=== PATIENT | male | born 1990 | race Caucasian/White ===

== ENCOUNTER 2019-09-02 09:18 | Emergency (ER) | payer OTHER, MEDICAID ==
[~2019-09-02] VITALS: Ht 172.7 cm; Wt 91.0 kg
--- NOTE | 2019-09-02 09:36 | NUR ---
charge auditor notified of legal, sitter in place. pt flushed, sweaty. wthdraws to pain. nonverbal. vss. SR/ST on monitor 90s. fall precs. maintaining airway. haldol per iv per ems, pt was speaking full sentences prior, denied hx of psych to ems, admitted to marijuana and meth and etoh. one belongings bag. awaiting md. as
[2019-09-02 10:21] LABS: BASOPHILS # (AUTO) 0.03 x10^3/uL (0-0.1); BASOPHILS % (AUTO) 0 % (0-1); EOSINOPHILS % (AUTO) 0 % (1-7); LYMPHOCYTES # (AUTO) 1.62 x10^3/uL (1-3.4); LYMPHOCYTES % (AUTO) 16 % (22-44); MD NO; MEAN CORPUSCULAR HEMOGLOBIN 30.4 pg (27.5-34.5); MEAN CORPUSCULAR HGB CONC 33.1 g/dL (33.2-36.2); MEAN CORPUSCULAR VOLUME 91.7 fL (81-97); MEAN PLATELET VOLUME 7.1 fL (7.4-10.4); MONOCYTES # (AUTO) 1.14 x10^3/uL (0.2-0.8); MONOCYTES % (AUTO) 12 % (2-9); NEUTROPHILS # (AUTO) 7.16 x10^3/uL (1.8-6.8); NEUTROPHILS % (AUTO) 72 % (42-75); PLATELET COUNT 263 x10^3/uL (130-400); RED BLOOD COUNT 5.41 x10^6/uL (4.38-5.82); RED CELL DISTRIBUTION WIDTH 14.1 % (9.4-14.8)
[2019-09-02 10:36] LABS: ALBUMIN 4.7 g/dL (3.4-5.0); ANION GAP 11 mmol/L (5-15); CALCIUM 9.3 mg/dL (8.5-10.1); CHLORIDE 100 mmol/L (98-107); CREATININE 1.91 mg/dL (0.7-1.3)
--- NOTE | 2019-09-02 10:40 | NUR ---
pt resting in bed, sitter in place. nonverbal, localizes to pain, vss, fall precs. labs pending. as
[2019-09-02 10:41] LABS: SALICYLATE LEVEL < 1.7 mg/dL (2.8-20.0)
[2019-09-02 11:09] VITALS: BP 123/83
--- NOTE | 2019-09-02 11:10 | NUR ---
resting in bed. pulls mask off face, beginning to move more, does not open eyes or speak. sitter in place. as
[2019-09-02] MEDS ORDERED: SODIUM CHLORIDE 0.9%, 500ML IVBOLUS ONE (12:00)
--- NOTE | 2019-09-02 12:41 | NUR ---
[facility] [place] [facility]) [phone]
--- NOTE | 2019-09-02 12:44 | NUR ---
UPDATED MOM ON PHONE, GIVEN PERMISSION BY PT. PER MOM PT ONLY SMOKES MARIJUANA AND HAS BEEN ACTING STRANGE X2 DAYS STS THERE ARE MICROPHONES IN HIS ROOM. UA WALKED TO LAB. PT A&OX4 GCS 15 ANSWERS QUESTIONS DENIES METH USE/SI/HI. PT NOTED TO BE WATCHING THINGS IN ROOM THAT AREN'T THERE.
[2019-09-02 12:58] LABS: AMPHETAMINE SCREEN, URINE Positive (Negative); BARBITURATE SCREEN, URINE Negative (Negative); BENZODIAZEPINE SCREEN, URINE Negative (Negative); CANNABINOID SCREEN, URINE Positive (Negative); COCAINE SCREEN, URINE Negative (Negative); METHADONE SCREEN, URINE Negative (Negative); OPIATE SCREEN, URINE Negative (Negative)
--- NOTE | 2019-09-02 13:09 | NUR ---
REPORT TO SHANNON WITT.
--- NOTE | 2019-09-02 13:12 | NUR ---
PT LAYING RECLINED IN BED. NAD NOTED AT THIS TIME. SITTER OUTSIDE OF ROOM FOR DIRECT OBSERVATION AND Q15 MIN SAFETY CHECKS.
--- NOTE | 2019-09-02 14:00 | NUR ---
REPORT RC'VD FROM VERNELL WITT AND CARE OF PT ASSUMED. ALL PT BELONGINGS REMOVED AND PLACED IN BAG IN LOCKER.
--- NOTE | 2019-09-02 14:42 | NUR ---
PT ATE LUNCH. RESTING IN GURNEY, NO S/S OF DISTRESS. AWAKENS EASILY. SITTER OUTSIDE ROOM AT ALL TIMES.
--- NOTE | 2019-09-02 15:04 | NUR ---
MOTHER REQUESTED TO VISIT PT. SHE STATES THAT PT HAS HAD ERRATIC BEHAVIOR THE PAST COUPLE DAYS, AND SHE THINKS HE SHOULD BE ON A LEGAL HOLD. PT STATING AT THIS TIME THAT HE DOESN'T WANT TO GO ANYWHERE, "I HAVE TO GO TO WORK TOMORROW, I CAN'T STAY HERE FOR A COUPLE DAYS!" WILL KEEP PT AND FAMILY UPDATED ON POC. MOTHER AT BS NOW.
--- NOTE | 2019-09-02 16:37 | NUR ---
MOTHER REMAINS AT BS. PT TO BE TRANSPORTED UP TO [facility]. PT AND MOTHER UNDERSTAND POC.
== END 2019-09-02 17:54 | disposition other institution (70) ==
LOC: ED 12:49
DX: F23 Brief psychotic disorder (principal); E86.0 Dehydration; F22 Delusional disorders; R41.82 Altered mental status, unspecified
CPT/HCPCS: 36415; 80048; 80307; 82040; 82550; 84443; 85025; 96360; 99283; J7040

== ENCOUNTER 2019-09-02 15:49 | Inpatient (IN) | payer OTHER, MEDICAID ==
[~2019-09-02] VITALS: Ht 167.6 cm; Wt 90.9 kg
[2019-09-02] MEDS ORDERED: ACETAMINOPHEN 325 MG TABLET PO PRN (17:00)
[2019-09-02] MEDS ORDERED: POLYETHYLENE GLYCOL 17 GM PACKET PO PRN (17:00)
[2019-09-02] MEDS ORDERED: DOCUSATE 100 MG CAPSULE PO PRN (17:00)
[2019-09-02 17:31] VITALS: BP 114/73
[2019-09-02] MEDS ORDERED: PLEASE ENTER HEIGHT AND WEIGHT MC SCH (18:00)
[2019-09-02 19:06] VITALS: BP 111/71
[2019-09-03 07:53] VITALS: BP 116/73
[2019-09-03 11:00] LABS: CHOL/HDL RATIO 3.4; FREE T4 (FREE THYROXINE) 1.46 ng/dL (0.76-1.46); LDL/HDL RATIO 2.1 (0.5-3.0)
[2019-09-03 12:02] LABS: MICROSCOPIC NOT IND
[2019-09-03 20:06] VITALS: BP 123/75
[2019-09-03] MEDS: TRAZODONE 100MG TABLET PO PRN (21:10)
[2019-09-04 07:44] VITALS: BP 105/63
[2019-09-04 19:47] VITALS: BP 125/73
[2019-09-04] MEDS: TRAZODONE 100MG TABLET PO PRN (20:23)
[2019-09-05 07:38] VITALS: BP 106/67
== END 2019-09-05 10:45 | disposition home or self-care (01) | DRG 885 ==
LOC: 3E 17:09
PROVIDERS: ADMIT Psychiatry & Neurology Psychosomatic Medicine; ATTEND Hospitalist
DX: F23 Brief psychotic disorder (principal); F12.90 Cannabis use, unspecified, uncomplicated; F17.200 Nicotine dependence, unspecified, uncomplicated
CPT/HCPCS: 36415; 80048; 80061; 80307; 81003; 82040; 82550; 82607; 84439; 84443; 85025; 96360; J7040

== ENCOUNTER 2019-09-11 13:48 | Emergency (ER) | payer MEDICAID, OTHER ==
[~2019-09-11] VITALS: Ht 154.9 cm; Wt 92.0 kg
[2019-09-11 13:53] VITALS: BP 166/76
--- NOTE | 2019-09-11 14:39 | NUR ---
PARANOID/HYPERVERBAL/RAPID/RANDOMLIMB MOVEMENTS. ADMITS TO SNORTING METH 5 DAYS AGO AND HAS BEEN UNABLE TO SLEEP SINCE THEN MOTHER AT BEDSIDE- WILL DRIVE PATIENT HOME IF NEED BE
[2019-09-11] MEDS ORDERED: LORazepam 1MG TABLET ONE (14:48)
[2019-09-11] MEDS ORDERED: LORazepam 1MG TABLET PO ONE (15:00)
--- NOTE | 2019-09-11 15:02 | NUR ---
MEDICATED PER EMAR
--- NOTE | 2019-09-11 15:42 | NUR ---
REPORT TO JOAQUINA WITT
--- NOTE | 2019-09-11 15:53 | NUR ---
REPORT FROM MIRYAM HILL. PT CARE RESPONSIBILITIES ASSUMED.
== END 2019-09-11 16:42 | disposition home or self-care (01) ==
LOC: ED 16:00
DX: F15.10 Other stimulant abuse, uncomplicated (principal); F41.9 Anxiety disorder, unspecified; R00.0 Tachycardia, unspecified; I49.3 Ventricular premature depolarization; F17.200 Nicotine dependence, unspecified, uncomplicated
CPT/HCPCS: 93005; 99283

== ENCOUNTER 2019-09-18 14:12 | Emergency (ER) | payer OTHER, MEDICAID ==
[~2019-09-18] VITALS: Ht 177.8 cm; Wt 96.6 kg
--- NOTE | 2019-09-18 14:31 | NUR ---
PT AMBULATED TO THE BR W/ A STEADY GAIT TO THE BR, PROVIDED URINE SAMPLE. URINE SENT TO LAB. BRENTON DE LEÓN AT BEDSIDE FOR ED EVAL.
[2019-09-18] MEDS ORDERED: AZITHROMYCIN 500 MG TABLET ONE (14:46)
[2019-09-18] MEDS ORDERED: LIDOCAINE-MPF 1%, 5ML ONE (14:47)
[2019-09-18] MEDS ORDERED: CEFTRIAXONE 250 MG ONE (14:47)
[2019-09-18 14:59] LABS: MICROSCOPIC INDICATED
[2019-09-18] MEDS ORDERED: AZITHROMYCIN 500 MG TABLET PO ONE (15:00)
[2019-09-18] MEDS ORDERED: CEFTRIAXONE 250 MG IM ONE (15:00)
== END 2019-09-18 15:59 | disposition home or self-care (01) ==
LOC: ED 15:30
DX: R30.0 Dysuria (principal); R36.9 Urethral discharge, unspecified; J45.909 Unspecified asthma, uncomplicated; F17.210 Nicotine dependence, cigarettes, uncomplicated
CPT/HCPCS: 81001; 87086; 87491; 87591; 96372; 99283; 99406; J0696; 87077